=== PATIENT | female | born 2000 ===

== ENCOUNTER 2023-02-03 08:11 | Outpatient (CLI) | payer OTHER | END 2023-02-03 08:20 | disposition home or self-care (01) | LOC: RAD 08:11 | PROVIDERS: ATTEND Orthopaedic Surgery | DX: R26.89 Other abnormalities of gait and mobility (principal) ==

== ENCOUNTER 2023-02-06 07:14 | Outpatient (CLI) | payer OTHER | END 2023-02-06 07:24 | disposition home or self-care (01) | LOC: RAD 07:14 | PROVIDERS: ATTEND Orthopaedic Surgery | DX: R26.89 Other abnormalities of gait and mobility (principal) ==

== ENCOUNTER 2023-02-14 07:14 | Outpatient (CLI) | payer OTHER | END 2023-02-14 07:29 | disposition home or self-care (01) | LOC: MRI 07:14 | PROVIDERS: ATTEND Orthopaedic Surgery | DX: M41.125 Adolescent idiopathic scoliosis, thoracolumbar region (principal) | CPT/HCPCS: 72148 ==